=== PATIENT | male | born 1965 | race Caucasian/White ===

== ENCOUNTER 2020-11-08 12:40 | Emergency (ER) | payer SELFPAY ==
[~2020-11-08] VITALS: Ht 170.2 cm; Wt 68.0 kg
--- NOTE | 2020-11-08 12:51 | NUR ---
Patient moved to ER bed 5 for better eye exam per MD.
[2020-11-08] MEDS ORDERED: TETRACAINE HCL 0.5% OPHT DROP 2 ML BOTTLE OP ONE (13:00)
[2020-11-08] MEDS ORDERED: FLUORESCEIN SODIUM 1 MG STRIP OP ONE (13:00)
[2020-11-08] MEDS ORDERED: FLUORESCEIN SODIUM 1 MG STRIP ONE ×2 (13:09→14:57)
[2020-11-08] MEDS ORDERED: TETRACAINE HCL 0.5% OPHT DROP 2 ML BOTTLE ONE (13:09)
[2020-11-08] MEDS ORDERED: TDAP DIPH,PERTUSS,TET VAC/PF 0.5 ML DISP.SYRIN IM ONE ×2 (14:59→15:30)
[2020-11-08] MEDS ORDERED: AMOX875T2 PO (15:26)
[2020-11-08] MEDS ORDERED: AMOXicillin 250 MG CAPSULE PO ONE (15:30)
[2020-11-08] MEDS ORDERED: CIPROFLOXACIN 0.3% OPHT DROP 2.5 ML BOTTLE OP ONE (15:30)
--- NOTE | 2020-11-08 15:35 | NUR ---
tetracaine aministered by . attempted numerous times to remove foreign body, all unsuccessful.
[2020-11-08] MEDS ORDERED: AMOXicillin 250 MG CAPSULE ONE (15:38)
[2020-11-08] MEDS ORDERED: CIPROFLOXACIN 0.3% OPHT DROP 2.5 ML BOTTLE ONE (15:38)
--- NOTE | 2020-11-08 15:39 | NUR ---
Gave pt RX and d/c instructions, pt verbalized understanding.
== END 2020-11-08 15:52 | disposition home or self-care (01) ==
LOC: ER 12:43
DX: T15.92XA Foreign body on external eye, part unspecified, left eye, initial encounter (principal); K04.7 Periapical abscess without sinus
CPT/HCPCS: 90715; A4663